=== PATIENT | female | born 1995 | race Caucasian/White ===

== ENCOUNTER 2022-03-11 14:41 | Emergency (ER) | payer MEDICAID, OTHER ==
[~2022-03-11] VITALS: Ht 157.5 cm; Wt 85.0 kg
[2022-03-11 14:45] VITALS: BP 131/62
[2022-03-11 18:27] LABS: CLARITY URINE CLEAR (CLEAR); COLOR URINE YELLOW (YELLOW); KETONES URINE NEGATIVE (NEGATIVE); LEUKOCYTE ESTERASE URINE 1+ (NEGATIVE); NITRITE URINE NEGATIVE (NEGATIVE); OCCULT BLOOD URINE TRACE (NEGATIVE); PH URINE 5.5 (4.5-8.0); PROTEIN URINE NEGATIVE (NEGATIVE); SPECIFIC GRAVITY URINE 1.007 (1.005-1.030); UROBILINOGEN URINE 0.2 E.U./dL (0.2-1.0)
[2022-03-11 18:39] LABS: *AMPHETAMINES SCREEN URINE NEGATIVE (NEGATIVE); *BARBITURATES SCREEN URINE NEGATIVE (NEGATIVE); *BENZODIAZEPINES SCREEN URINE NEGATIVE (NEGATIVE); *COCAINE SCREEN URINE NEGATIVE (NEGATIVE); CANNABINOID URINE SCREEN NEGATIVE (NEGATIVE); METHADONE URINE SCREEN NEGATIVE (NEGATIVE); OPIATES URINE SCREEN NEGATIVE (NEGATIVE); PHENCYCLIDINE URINE SCREEN NEGATIVE (NEGATIVE)
[2022-03-11 19:39] LABS: HCG SCREEN NEGATIVE
[2022-03-11] MEDS ORDERED: METR375C2 MT (20:35)
[2022-03-11] MEDS ORDERED: METRONIDAZOLE 500MG TABLET PO ONE (20:45)
== END 2022-03-11 20:56 | disposition home or self-care (01) ==
LOC: ER 14:41
DX: N76.0 Acute vaginitis (principal)
CPT/HCPCS: 76830; 76856; 80305; 81003; 81025; 84703; 87210; 87591; 99284; Z7610